=== PATIENT | male | born 1985 | race Caucasian/White ===

== ENCOUNTER 2017-02-22 11:02 | Outpatient (CLI) ==
--- NOTE | 2017-02-22 12:30 | DI ---
Examination: Single radiographic image of the chest with three radiographic images of the right rib s. Comparison: None available. Reason for study: Right chest wall pain. FINDINGS: No pneumothorax, pleural effusion, or focal consolidation. The cardiac silhouette is not enlarged. There is mild dextroscoliosis of the thoracic spine. No displaced right-sided rib fractures. Impression: 1. No acute cardiopulmonary process. 2. No displaced right-sided rib fractures. 3. Mild dextroscoliosis of the thoracic spine.
== END 2017-02-22 11:03 | disposition home or self-care (01) ==
LOC: RAD 11:02
PROVIDERS: ATTEND Family Medicine
DX: R07.89 Other chest pain (principal)